=== PATIENT | female | born 1940 | race Caucasian/White ===

== ENCOUNTER → 2016-11-15 | Outpatient (CLI) | payer MEDICARE | LOC: WC.BC 09:55 | DX: Z12.31 Encounter for screening mammogram for malignant neoplasm of breast (principal) | CPT/HCPCS: 77063; G0202 ==

== ENCOUNTER 2016-11-28 07:17 | Day surgery (SDC) | payer MEDICARE ==
[~2016-11-28] VITALS: Ht 152.4 cm; Wt 51.2 kg
[~2016-11-28 07:17] MED LIST: ASPI-914 PO; BUPR300T59 PO; CALC1TAB PO; LEVO75TA10 PO; LIDOCAINE 1% (10mg/ml) 2ml SDV INJ ONE; LOVA20TA3 PO; LR 1,000 ML IV SCH; MULT-933 PO; TOPI100T43 PO
[2016-11-28 07:38] VITALS: BP 110/71; PULSE 87; RESP 16; TEMP 97.4; O2SAT 100; Ht 152.4 cm; Wt 51.2 kg
--- NOTE | 2016-11-28 07:56 | ANESPREOP ---
Anesthesia Record Date and Time DATE: 11/28/16 TIME: 07:53 Pre-Op Diagnosis Screening Proposed Surgical Procedure COLONOSCOPY NPO since: Midnight Allergies: Coded Allergies: NKDA (Verified Allergy, Unknown, 11/28/16) Ht/Wt/BMI Height: 5 ' 0.00 " Weight: 51.200 kg BMI: 22.0 kg/m2 Vital Signs Date Time Temp Pulse Resp B/P Pulse Ox O2 Delivery O2 Flow Rate FiO2 11/28/16 07:38 97.4 87 16 110/71 100 Room Air Medications Inpatient Medications Current Medications Medications (Trade) Dose Ordered Sig/Erna Start Time Stop Time Status Last Admin Dose Admin Lactated Ringer's (Lactated Ringers) 1,000 ml @ 50 mls/hr Q20H 11/28/16 07:00 Aspirin *EC* (Low Dose Aspirin EC) 81 Mg Tablet.dr, 1 TAB PO DAILY, (Reported) Last Taken: on 11/22/16 Bupropion HCl (Bupropion Xl) 300 Mg Tab.er.24h, 1 TAB PO DAILY, (Reported) Last Taken: on 11/27/16 08 Calcium Carbonate/Vitamin D3 (Caltrate 600 + D Tablet) 1 Each Tablet, 1 TAB PO DAILY, (Reported) Last Taken: on 11/27/16 0800 Levothyroxine Sodium (Levothyroxine Sodium) 75 Mcg Tablet, 75 MCG PO ACB, (Reported) Once daily before breakfast. Last Taken: on 11/27/16 0800 Lovastatin (Lovastatin) 20 Mg Tablet, 20 MG PO HS, (Reported) Take one tablet,by mouth, one time a day (at bedtime). Last Taken: on 11/27/16 2100 Multivitamin (Multi-Day Vitamins) 1 Each Tablet , 1 TAB PO DAILY, (Reported) Last Taken: on 11/27/16 08 Topiramate (Topiramate) 100 Mg Tablet, 0.5 TAB PO QAM, (Reported) Last Taken: on 11/27/16 0800 Topiramate (Topiramate) 100 Mg Tablet, 1 TAB PO HS, (Reported) Last Taken: on 11/27/16 2100 Currently on Beta Leia: No Medical/Surgical History Anesthesia PMH: Reports: Arthritis, CVA/Stroke/TIA (TIA), Hyperlipidemia, Seizures (PER H&P), Thyroid Disease (HYPOTHYROIDISM PER H&P), Denies: *Diabetes , *Hypertension (PT DENIES), Anesthesia Reactions (NO AIRWAY ISSUES), Cancer, Glaucoma, Malignant Hyperthermia, Sleep Apnea Smoking Status: Former smoker Has pt. smoked today?: No Use Chewing Tobacco?: No Second Hand Exposure: No Substance Use Type: does not use Alcohol Intake: none HX of Last Menstrual Period: MENOPAUSE AGE 45 Past Surgical History Orthopedic Surgeries: Yes - BUNIONECTOMY PER H&P Abdominal Surgeries: Yes - GALLBLADDER PER H&P Genitourinary Surgeries: Cardiac Surgeries: Endocrine Surgeries: Reproductive Surgeries: Neurological Surgeries: Ear Surgeries: Nose Surgeries: Throat Surgeries: Other Surgeries: Yes - COLONOSCOPY PER H&P,BILAT CATARACT SURGERY Anesthesia Adverse Reactions: FOUND none Family Hx of Anesthesia Advers: none Hx of Motion Sickness: No Pertinent Findings EKG Rhythm: Sinus Rhythm Physical Exam Respiratory: Lungs clear Cardiovascular: FOUND Regular rate, rhythm Airway Assessment Mallampati Score: II TMD: 3 Fingerbreadths Neck Extension: Fair Overall Assessment: No Airway Concerns ASA: 3 Plan Anesthesia Plan: TIVA Discussion Discussed risks/options/alternatives of anesthesia and questions answered. Patient consents. Nursing pain assessment noted. Present: Family Member Attestation Statement Prior to the delivery of any anesthetic medication, I examined the patient, developed the plan, obtained the patient's consent and discussed the risk and benefits of the procedure with the patient/guardian. DHARA MARIE [employer] RN Nov 28, 2016 07:56
[2016-11-28] MEDS ORDERED: PROPOFOL 500mg 50 ML IV ONE (07:58)
[2016-11-28 09:46] VITALS: BP 98/53; PULSE 78; RESP 16; TEMP 97; O2SAT 99
[2016-11-28 10:00] VITALS: BP 99/55; PULSE 80; RESP 20; O2SAT 98
[2016-11-28 10:15] VITALS: BP 115/63; PULSE 74; RESP 22; O2SAT 100
[2016-11-28 10:20] VITALS: BP 123/77; PULSE 70; RESP 20; O2SAT 97
--- NOTE | 2016-11-28 10:53 | ANESPO ---
Post-Op Note Date 11/28/16 Time: 10:52 Status Pt Participated in Evaluation: Pt participated by phone Vital Signs Date Time Temp Pulse Resp B/P Pulse Ox O2 Delivery O2 Flow Rate FiO2 11/28/16 10:20 70 20 123/77 97 Room Air 11/28/16 09:46 97.0 6.00 Respiratory Function: Airway patent Cardiovascular Function: Regular pulse Telemetry Pattern: SR Mental Status: Alert/oriented Pain Level Intensity: 0 Hydration: Taking po fluids Complications during Recovery None apparent Follow-Up Instructions Instructions Per Surgeon DHARA MARIE CRNA Nov 28, 2016 10:53
--- NOTE | 2016-11-28 15:06 | OPNOTEF ---
DATE OF PROCEDURE: 11/28/2016 SURGEON: Tony Gutierrez MD PREOPERATIVE DIAGNOSIS Colorectal cancer surveillance. POSTOPERATIVE DIAGNOSIS colonic polyp x3 located in the ascending colon x 1, 25 cm x 1, 15 x 1. PROCEDURE: Colonoscopy with polypectomy via hot forceps technique x 3. ANESTHESIA: TIVA. BRIEF HISTORY/INDICATIONS Katey is a 76-year-old female who was seen by her PCP for comprehensive exam. They discussed colorectal cancer and decided to proceed with colonoscopy as part of her screening. Please refer to office notes for the details. FINDINGS Upon colonoscopy there was no evidence for angiodysplastic lesions, diverticula, or santos malignancies. The patient found to have three small polyps. These polyps were located within the ascending colon at 15 cm and 25 cm from the anal verge. All polyps were removed via hot forceps technique and sent to pathology. DESCRIPTION OF PROCEDURE After informed consent was obtained, the patient was brought to the endoscopy suite and placed on the table in the left lateral decubitus position. The patient subsequently underwent total intravenous anesthesia by the nurse heading and priming tool setter per my request. Next, a digital rectal examination was performed; normal sphincter tone. No rectal masses were appreciated. An Olympus colonoscope was inserted in the anus and advanced with the lumen of the colon under direct visualization at all times until the cecum was ascertained. Triangulation of the tenia coli, ileocecal valve and appendiceal lumen were all visualized. The scope was then slowly withdrawn, again while maintaining visualization of the lumen at all times. As stated above, the entire colon was without evidence for angiodysplastic lesions, diverticula, santos malignancies. The patient has found to have three small polyps all of which were removed via hot forceps technique. Photographs were taken for documentation. The scope continued to be withdrawn until it was removed from the patient's anal verge. The patient tolerated the procedure without difficulty and was sent back to the preoperative area in stable condition. We will await the biopsy results to make further recommendations. I will contact Katey with results. LEANN
== END 2016-11-28 10:25 | disposition home or self-care (01) ==
LOC: NSC 07:17
PROVIDERS: ATTEND Family Medicine
DX: Z12.11 Encounter for screening for malignant neoplasm of colon (principal); K63.5 Polyp of colon; K58.9 Irritable bowel syndrome, unspecified; I10 Essential (primary) hypertension; E78.5 Hyperlipidemia, unspecified; E03.9 Hypothyroidism, unspecified; G40.909 Epilepsy, unspecified, not intractable, without status epilepticus; F32.9 Major depressive disorder, single episode, unspecified; Z86.73 Personal history of transient ischemic attack (TIA), and cerebral infarction without residual deficits; Z79.899 Other long term (current) drug therapy
CPT/HCPCS: 45384; J7120; 88305